=== PATIENT | female | born 1970 | race Caucasian/White ===

== ENCOUNTER 2019-08-07 15:36 | Emergency (ER) | payer OTHER ==
[~2019-08-07] VITALS: Ht 167.6 cm; Wt 100.2 kg
[2019-08-07 16:02] LABS: HEMATOCRIT 41.9 % (37.0-47.0); HEMOGLOBIN 14.2 gm/dL (12.0-15.0); MCHC 33.9 g/dL (28.0-37.0); MCV 85.5 fL (80.0-100.0); MPV 7.6 fl. (7.2-11.1); NUCLEATED RBCS 0 /100WBC; PLATELET COUNT* 293 thou/uL (150-400); RDW-CV 13.6 % (10.5-14.5); WBC 9.2 thou/uL (4.0-11.0)
[2019-08-07 16:03] LABS: URINE BILIRUBIN NEGATIVE (Negative); URINE BLOOD NEGATIVE (Negative); URINE CLARITY CLEAR; URINE COLOR YELLOW; URINE GLUCOSE-RANDOM NEGATIVE (Negative); URINE KETONES 2+ (Negative); URINE LEUKOCYTES-REFLEX NEGATIVE (Negative); URINE NITRITE-REFLEX NEGATIVE (Negative); URINE PROTEIN TRACE (Negative); URINE SPECIFIC GRAVITY >= 1.030 (1.005-1.030); URINE UROBILINOGEN 0.2 E.U./dl (0.2-1.0)
[2019-08-07 16:12] LABS: CALCIUM 8.5 mg/dL (8.5-10.1); POTASSIUM 3.3 mmol/L (3.5-5.1)
[2019-08-07 16:16] LABS: ALBUMIN 3.4 g/dL (3.4-5.0); TOTAL BILIRUBIN 0.8 mg/dL (<0.1-1.0); TOTAL PROTEIN 7.7 g/dL (6.4-8.2)
[2019-08-07 16:36] LABS: ABSOLUTE LYMPHOCYTES 0.3 thou/uL (0.8-5.3); ABSOLUTE MONOCYTES 0.1 thou/uL (0.0-1.2); ABSOLUTE NEUTROPHILS 8.8 thou/uL (1.6-8.1); PLATELET ESTIMATE ADEQUATE
[2019-08-07] MEDS ORDERED: ZOFRAN ODT4 MG DISSOLVE (17:02)
[2019-08-07 17:18] VITALS: BP 130/77
--- NOTE | 2019-08-08 15:38 | EKG ---
[place] [address] ELECTROCARDIOGRAM REPORT Name: SURI BARR Room: [facility]#: [id number] Admission: 08/07/19 Attend Phys: Discharge: 08/07/19 Date of : 72 Report #: [id number] THIS REPORT FOR: //name// [facility] ED Test Date: 2019-08-07 Test Time: 16:30:10 Pat Name: SURI BARR Department: Room: Gender: F Councilman: [place] : 1970 Requested By: Gaston Molina Order Number: [id number] MD: Michael Piper Measurements Intervals [place] Rate: 103 P: 45 CT: 172 QRS: -11 QRSD: 99 T: -30 QT: 349 QTc: 457 Interpretive Statements Sinus tachycardia Probable left atrial enlargement Borderline repolarization abnormality No previous ECG available for comparison Electronically Signed On 08-08-2019 15:37:45 [employer] by Michael Piper [email or web address] <ELECTRONICALLY SIGNED> By: Michael Piper MD, [facility] 08/08/19 1537 1630 1630 Michael Piper MD, FACC /EPI
== END 2019-08-07 17:19 | disposition home or self-care (01) ==
LOC: M.ERS 15:36
PROVIDERS: Emergency Medicine Emergency Medical Services
DX: K52.9 Noninfective gastroenteritis and colitis, unspecified (principal)